=== PATIENT | female | born 1960 | race Caucasian/White ===

== ENCOUNTER 2019-12-31 13:26 | Inpatient (IN) | payer MEDICARE ==
[~2019-12-31] VITALS: Ht 165.1 cm; Wt 85.7 kg
[2019-12-31] MEDS ORDERED: LOTENSIN40 MG PO (13:49)
[2019-12-31] MEDS ORDERED: PROZAC20 MG PO (13:50)
[2019-12-31] MEDS ORDERED: CYCLOBENZAPRINE10 MG PO (13:51)
[2019-12-31 14:01] VITALS: BP 193/65; BMI 31.5
[2019-12-31 14:22] LABS: BASOPHILS 0.4 % (0-2); EOSINOPHILS 1.8 % (0-7); HEMATOCRIT 46.1 % (36.0-48.0); HEMOGLOBIN 14.9 g/dL (12-16); IMMATURE GRANULOCYTES 0.3 % (0-5); MCH 27.4 pg (26.0-34.0); MCHC 32.3 g/dL (31.0-37.0); MCV 84.9 fL (80.0-100.0); MONOCYTES 5.8 % (2-11); NEUTROPHILS 68.7 % (40-80); PLATELET COUNT 152 10x3/uL (130-400); RBC 5.43 10x6/uL (4.00-5.40); RDW 14.4 % (11.5-14.5)
[2019-12-31 14:30] LABS: APTT 36.8 SECONDS (22.8-39.4); INR 1.09 (0.85-1.17)
--- NOTE | 2019-12-31 14:36 | NUR ---
IV STARTED TO RIGHT FA WITH 20 GAUGE CATH X 1 STICK AND FLUSHED WITH NS. LINE IS PATENT.
[2019-12-31 15:08] LABS: ALBUMIN 3.5 g/dL (3.4-5.0); ALKALINE PHOSPHATASE 150 U/L (30-120); ALT (SGPT) 22 U/L (10-68); BILIRUBIN - TOTAL 0.41 mg/dL (0.2-1.3); CALC OSMOLALITY 276 mosm/kg (275-300); CARBON DIOXIDE 27.9 mmol/L (21.0-32.0); CHLORIDE - SERUM 102 mmol/L (98-107); CKMB 0.8 U/L (0.0-3.6); CREATINE KINASE 26 UL (21-215); GLUCOSE 151 mg/dL (74-106); POTASSIUM - SERUM 3.8 mmol/L (3.5-5.1); PROTEIN - SERUM 6.5 g/dL (6.4-8.2); SODIUM 139 mmol/L (136-145); UREA NITROGEN 1 mg/dL (7-18)
[2019-12-31 15:36] LABS: CREATININE - SERUM 0.6 mg/dL (0.6-1.3); MAGNESIUM - SERUM 1.8 mg/dL (1.8-2.4); eGFR NON AFRICAN AMERICAN > 90 mL/min (90-120)
[2019-12-31 16:21] LABS: CHOL - HDL RATIO 5.9 ratio (2.3-4.1); LDL-HDL RATIO 4.1 ratio (1.5-3.5); THYROID STIMULATING HORMONE 1.51 uIU/mL (0.36-3.74)
[2019-12-31 18:53] VITALS: BP 156/48
--- NOTE | 2019-12-31 19:37 | NUR ---
RECEIVED BEDSIDE RPEORT. PATIENT IS ALERT AND ORIENTED, RESTING COMFORTABLY IN BED. RESPIRATIONS ARE EVEN AND UNLABORED. NO S/S OF DISTRESS. NO C/O PAIN. CALL LIGHT WITHIN REACH. WILL CPOC.
[2019-12-31 20:00] VITALS: BP 139/82
[2019-12-31 20:29] LABS: CKMB 2.2 U/L (0.0-3.6); CREATINE KINASE 25 UL (21-215); TROPONIN-I < 0.017 ng/mL (0.000-0.060)
[2020-01-01] VITALS: BP 167/54; BP 189/76
[2020-01-01 02:50] LABS: CKMB 0.5 U/L (0.0-3.6); CREATINE KINASE 20 UL (21-215); TROPONIN-I < 0.017 ng/mL (0.000-0.060)
[2020-01-01 04:00] VITALS: BP 193/86
[2020-01-01 05:02] LABS: BASOPHILS 0.4 % (0-2); EOSINOPHILS 2.6 % (0-7); HEMATOCRIT 44.7 % (36.0-48.0); HEMOGLOBIN 14.4 g/dL (12-16); IMMATURE GRANULOCYTES 0.3 % (0-5); MCH 27.3 pg (26.0-34.0); MCHC 32.2 g/dL (31.0-37.0); MCV 84.8 fL (80.0-100.0); MEAN PLATELET VOLUME 11.6 fL (7.4-10.4); NEUTROPHILS 60.7 % (40-80); PLATELET COUNT 135 10x3/uL (130-400); RBC 5.27 10x6/uL (4.00-5.40); RDW 14.5 % (11.5-14.5); WBC 7.8 10x3/uL (4.8-10.8)
[2020-01-01 05:14] LABS: CALC OSMOLALITY 281 mosm/kg (275-300); CALCIUM 8.8 mg/dL (8.5-10.1); CHLORIDE - SERUM 104 mmol/L (98-107); CREATININE - SERUM 0.6 mg/dL (0.6-1.3); GLUCOSE 162 mg/dL (74-106); MAGNESIUM - SERUM 1.8 mg/dL (1.8-2.4); POTASSIUM - SERUM 3.4 mmol/L (3.5-5.1); SODIUM 140 mmol/L (136-145); eGFR NON AFRICAN AMERICAN > 90 mL/min (90-120)
[2020-01-01 05:19] LABS: UREA NITROGEN 10 mg/dL (7-18)
--- NOTE | 2020-01-01 07:36 | NUR ---
ASSESSMENT DONE. DENIES NEEDS
[2020-01-01 09:32] VITALS: BP 183/63
--- NOTE | 2020-01-01 10:04 | NUR ---
I have reviewed this patient and I concur with the Shift Assessment completed by the Licensed Practical Nurse today this shift.
[2020-01-01 12:59] VITALS: Ht 165.1 cm; Wt 85.7 kg
[2020-01-01 13:39] VITALS: BP 192/74
[2020-01-01 16:00] VITALS: BP 182/89
--- NOTE | 2020-01-01 16:45 | NUR ---
WITHOUT CHANGES OR DISTRESS NOTED AT THIS TIME. DENIES NEEDS
[2020-01-01 20:00] VITALS: BP 186/65
[2020-01-02 04:00] VITALS: BP 171/62
--- NOTE | 2020-01-02 04:36 | NUR ---
ADMINISTERED PRN APRESOLINE FOR BP 171/62
[2020-01-02 06:55] LABS: CALC OSMOLALITY 278 mosm/kg (275-300); CALCIUM 8.9 mg/dL (8.5-10.1); CARBON DIOXIDE 27.8 mmol/L (21.0-32.0); CHLORIDE - SERUM 103 mmol/L (98-107); CREATININE - SERUM 0.5 mg/dL (0.6-1.3); GLUCOSE 164 mg/dL (74-106); MAGNESIUM - SERUM 1.9 mg/dL (1.8-2.4); POTASSIUM - SERUM 3.6 mmol/L (3.5-5.1); SODIUM 138 mmol/L (136-145); UREA NITROGEN 11 mg/dL (7-18); eGFR NON AFRICAN AMERICAN > 90 mL/min (90-120)
[2020-01-02 07:19] LABS: BASOPHILS 0.5 % (0-2); EOSINOPHILS 2.5 % (0-7); HEMATOCRIT 46.8 % (36.0-48.0); HEMOGLOBIN 15.3 g/dL (12-16); IMMATURE GRANULOCYTES 0.4 % (0-5); LYMPHOCYTES 26.4 % (15-50); MCH 27.7 pg (26.0-34.0); MCHC 32.7 g/dL (31.0-37.0); MCV 84.8 fL (80.0-100.0); MEAN PLATELET VOLUME 11.3 fL (7.4-10.4); NEUTROPHILS 63.2 % (40-80); PLATELET COUNT 133 10x3/uL (130-400); RBC 5.52 10x6/uL (4.00-5.40); RDW 14.3 % (11.5-14.5); WBC 7.6 10x3/uL (4.8-10.8)
[2020-01-02 07:43] VITALS: BP 164/60
[2020-01-02] MEDS ORDERED: NORVASC10 MG PO (11:22)
[2020-01-02] MEDS ORDERED: HCTZ25 MG PO (11:23)
[2020-01-02 11:51] VITALS: BP 197/85
--- NOTE | 2020-01-02 12:05 | MORECARE ---
CASE MANAGEMENT DISCHARGE SUMMARY PATIENT: SHANI BOLTON UNIT: [id number] ADM DATE: 12/31/19 AGE: 59 : 58 SEX: F ROOM/BED: D.2121 AUTHOR: SIRI,DOC PHYSICIAN: REFERRING PHYSICIAN: ADOLFO NGUYEN MD DATE OF SERVICE: 01/02/20 Discharge Plan Patient Name: SHANI BOLTON Facility: [facility]:[place] : 1960 Planned Disposition: Home Anticipated Discharge Date: Discharge Date: Expected LOS: 0 Initial Reviewer: [email or web address] Initial Review Date: 12/31/2019 Generated: 01/02/20 1:04 pm DCPIA - Discharge Planning Initial Assessment Updated by [email or web address]: Shani Rojo on 01/02/20 12:02 pm * Is the patient Alert and Oriented? Yes * How many steps to enter\exit or inside your home? 5/0 * PCP sukumar * Pharmacy [facility] * Preadmission Environment Home Alone * ADLs Independent * Equipment Bedside Commode Cane Rolling Walker * Verbal permission to speak to the caregivers and representatives has been obtained from the patient. N/A * Community resources currently utilized None * Additional services required to return to the preadmission environment? Yes * Can the patient safely return to the preadmission environment? Yes * Has this patient been hospitalized within the prior 30 days at any hospital? No Coverage Notice Reviewer: [id number] Ayo Rojo Notice Issued Date-Time: 01/01/2020 11:38 Notice Type: IM Discharge Notice Notice Delivered To: Patient Relationship to Patient: Tape Maker Name: Delivery Method: HAND - Hand Delivered Sharron Days: Prior Verbal Notification: Recipient Understood Notice: Yes Recipient Signature: Yes Med Rec Note Co-signed by Attending: Coverage Notice Comment: DC IMM delivered, explained, signed by the patient, and placed in his chart. Signed form also left with patient. Reviewer: [email or web address] Ayo Rojo Notice Issued Date-Time: 01/01/2020 11:35 Notice Type: Patient Choice Letter Notice Delivered To: Patient Relationship to Patient: Tape Maker Name: Delivery Method: HAND - Hand Delivered Sharron Days: Prior Verbal Notification: Recipient Understood Notice: Yes Recipient Signature: Yes Med Rec Note Co-signed by Attending: Coverage Notice Comment: chad DECLENATION SIGNED FOR ANY HOME HEALTH SERVICES. PT DENIES NEEDS AT THIS TIME. Patient Name: SHANI BOLTON Page [phone] at 1205 All edits/amendments must be made on the electronic document DICTATION DATE: 01/02/20 120 OVERHEAD DISTRIBUTION ENGINEER: EDWIN 01/02/20 1204 RPT#: [id number] DC DATE: STATUS: ADM IN [facility] [address] [place] [address] END OF REPORT
--- NOTE | 2020-01-02 12:13 | MORECARE ---
CASE MANAGEMENT DISCHARGE SUMMARY PATIENT: SHANI BOLTON UNIT: [id number] ADM DATE: 12/31/19 AGE: 59 : 58 SEX: F ROOM/BED: D.6995 AUTHOR: NATALIYA HORNER PHYSICIAN: REFERRING PHYSICIAN: ADOLFO NGUYEN MD DATE OF SERVICE: 01/02/20 Discharge Plan Patient Name: SHANI BOLTON Facility: [facility]:[place] : 1960 Planned Disposition: Home Anticipated Discharge Date: Discharge Date: Expected LOS: 0 Initial Reviewer: [email or web address] Initial Review Date: 12/31/2019 Generated: 01/02/20 1:12 pm Comments DCP- Discharge Planning Updated by [email or web address]: Shani Rojo on 01/02/20 11:[address] Patient Name: SHANI BOLTON Admission Status: Elective Admission Date: 12-31-2019 : 1960 Admission Diagnosis: ESSENTIAL (PRIMARY) HYPERTENSION Attending: ADOLFO BARKER Current LOS: 2 Anticipated DC Date: Planned Disposition: Home Primary Insurance: [facility] [employer] Discharge Planning Comments: CM met with patient to complete initial dc planning assessment. CM educated patient on the CM role and verbal consent given by patient to complete assessment. CM verified patient's address, phone number, and emergency contact phone numbers. Patient lives at home with a roommate, and is independent. At discharge patient plans to return home and feels this is a safe discharge. CM discussed availability of home health, rehab services, and medical equipment. Patient has a shower chair, bed side commode, cane, and a rolling walker. States she is able to mow her property, and denies any difficulty with ADL's, Transportation provider at discharge will be herself. CM will continue to follow and will assist as needed with dc plans/needs. DC IMM delivered, explained, signed by the patient, and placed in his chart. Signed form also left with patient. Sew Out Operator: Shani Rojo DCPIA - Discharge Planning Initial Assessment Updated by [email or web address]: Shani Rojo on 01/02/20 12:02 pm * Is the patient Alert and Oriented? Yes * How many steps to enter\exit or inside your home? 5/0 * PCP sukumar * Pharmacy [facility] * Preadmission Environment Home Alone * ADLs Independent * Equipment Bedside Commode Cane Rolling Walker * Verbal permission to speak to the caregivers and representatives has been obtained from the patient. N/A * Community resources currently utilized None * Additional services required to return to the preadmission environment? Yes * Can the patient safely return to the preadmission environment? Yes * Has this patient been hospitalized within the prior 30 days at any hospital? No Coverage Notice Reviewer: [id number] Ayo Rojo Notice Issued Date-Time: 01/01/2020 11:38 Notice Type: IM Discharge Notice Notice Delivered To: Patient Relationship to Patient: Metal Bonding Crib Attendant Name: Delivery Method: HAND - Hand Delivered Sharron Days: Prior Verbal Notification: Recipient Understood Notice: Yes Recipient Signature: Yes Med Rec Note Co-signed by Attending: Coverage Notice Comment: DC IMM delivered, explained, signed by the patient, and placed in his chart. Signed form also left with patient. Reviewer: [id number] Ayo Rojo Notice Issued Date-Time: 01/01/2020 11:35 Notice Type: Patient Choice Letter Notice Delivered To: Patient Relationship to Patient: Metal Bonding Crib Attendant Name: Delivery Method: HAND - Hand Delivered Sharron Days: Prior Verbal Notification: Recipient Understood Notice: Yes Recipient Signature: Yes Med Rec Note Co-signed by Attending: Coverage Notice Comment: chad DECLENATION SIGNED FOR ANY HOME HEALTH SERVICES. PT DENIES NEEDS AT THIS TIME. Last DP export: 01/02/20 11:05 a Patient Name: SHANI BOLTON Page [phone] at 1213 All edits/amendments must be made on the electronic document DICTATION DATE: 01/02/20 1212 PROTOTYPE MACHINIST: EDWIN 01/02/20 1212 RPT#: [id number] DC DATE: STATUS: ADM IN [facility] [address] [place] [address] END OF REPORT
--- NOTE | 2020-01-02 13:17 | NUR ---
PT LEFT FOREARM IV DC'D AND DISCHARGE INSTRUCTIONS GIVEN. VITALS STABLE PT A/O. PT DISCHARGED TO PRIVATE VEHICLE.
== END 2020-01-02 13:55 | disposition home or self-care (01) | DRG 305 ==
LOC: D.M2 13:26
PROVIDERS: Family Medicine; ADMIT Family Medicine; ATTEND Family Medicine
DX: I16.9 Hypertensive crisis, unspecified (principal); E11.9 Type 2 diabetes mellitus without complications; M19.90 Unspecified osteoarthritis, unspecified site; Z86.73 Personal history of transient ischemic attack (TIA), and cerebral infarction without residual deficits

== ENCOUNTER → 2020-01-14 08:59 | Outpatient (CLI) | payer MEDICARE ==
[2020-01-01 12:59] VITALS: BMI 31.4
[~2020-01-14 08:59] MED LIST: CYCLOBENZAPRINE10 MG PO; HCTZ25 MG PO; LOTENSIN40 MG PO; NORVASC10 MG PO; PROZAC20 MG PO
== END | disposition home or self-care (01) ==
LOC: D.MRI 08:59
PROVIDERS: ATTEND Orthopaedic Surgery
DX: M54.16 Radiculopathy, lumbar region (principal)

== ENCOUNTER 2020-02-26 08:00 | Outpatient (CLI) | payer MEDICARE ==
[2020-01-01 12:59] VITALS: BMI 31.4
== END 2020-02-26 23:59 | disposition home or self-care (01) ==
LOC: D.MAMMO 08:00
PROVIDERS: ATTEND Nurse Practitioner Family
DX: Z12.31 Encounter for screening mammogram for malignant neoplasm of breast (principal)

== ENCOUNTER 2020-10-21 05:00 | Day surgery (SDC) | payer MEDICARE ==
[2020-10-18 13:12] LABS: BASOPHILS 0.6 % (0-2); EOSINOPHILS 3.3 % (0-7); HEMATOCRIT 44.9 % (36.0-48.0); HEMOGLOBIN 14.8 g/dL (12-16); IMMATURE GRANULOCYTES 0.2 % (0-5); LYMPHOCYTE ABS# 2.35 10x3/uL (1.18-3.74); LYMPHOCYTES 29.1 % (15-50); MCH 27.3 pg (26.0-34.0); MCV 82.8 fL (80.0-100.0); MEAN PLATELET VOLUME 11.3 fL (7.4-10.4); MONOCYTES 5.5 % (2-11); NEUTROPHIL ABS# 4.94 10x3/uL (1.56-6.13); NEUTROPHILS 61.3 % (40-80); PLATELET COUNT 146 10x3/uL (130-400); RBC 5.42 10x6/uL (4.00-5.40); RDW 14.1 % (11.5-14.5); WBC 8.1 10x3/uL (4.8-10.8)
[2020-10-18 13:36] LABS: CALC OSMOLALITY 278 mosm/kg (275-300); CALCIUM 9.7 mg/dL (8.5-10.1); CARBON DIOXIDE 31.2 mmol/L (21.0-32.0); CHLORIDE - SERUM 102 mmol/L (98-107); CREATININE - SERUM 0.7 mg/dL (0.6-1.3); GLUCOSE 134 mg/dL (74-106); POTASSIUM - SERUM 3.8 mmol/L (3.5-5.1); SODIUM 139 mmol/L (136-145); UREA NITROGEN 11 mg/dL (7-18); eGFR NON AFRICAN AMERICAN 90 mL/min (90-120)
[~2020-10-21] VITALS: Ht 165.1 cm; Wt 81.6 kg
[~2020-10-21 05:00] MED LIST changes: +HYDRALAZINE HCL10 MG PO; +LIPITOR10 MG PO; +NORVASC10 MG; +TOPROL XL25 MG PO; +[UNRECOGNIZED DRUG - OTHER]
[2020-10-21 05:51] VITALS: BP 141/66; Ht 165.1 cm; Wt 81.6 kg
[2020-10-21] MEDS ORDERED: HYDROCODON-ACE1 EA10 PO (08:46)
[2020-10-21] MEDS ORDERED: MEDROL DOSE PACK4 MG PO (08:46)
--- NOTE | 2020-10-21 10:13 | NUR ---
1000 O2 SAT 89% UPON ENTERING PT'S ROOM. REMINDED PT TO TAKE DEEP BREATHS AND COUGH. OXYGEN SAT CAME UP TO 95%. 1010 OXYGEN LEVEL 90-92% IV DC'D. CATHETER TIP INTACT. PRESSURE HELD UNTIL BLEEDING STOPPED. BANDAID APPLIED. DISCHARGE INSTRUCTIONS REVIEWED WITH PT WHO VOICES UNDERSTANDING OF THESE INSTRUCTIONS.
--- NOTE | 2020-10-27 13:05 | OP ---
PATIENT NAME: ALYSIA BOLTON MEDICAL RECORD: [id number] :58 LOCATION:D.OPS ADMISSION DATE: SURGEON: MARY SAPP MD DATE OF OPERATION: 10/21/2020 DATE OF SERVICE: 10/21/2020 PREOPERATIVE DIAGNOSES: Lumbar spinal stenosis and foraminal stenosis at L3-L4 and L4-L5, right. POSTOPERATIVE DIAGNOSES: Lumbar spinal stenosis and foraminal stenosis at L3-L4 and L4-L5, right. PROCEDURE: Lumbar laminectomy, medial facetectomy and foraminotomy at L3-L4 and L4-L5 on the right with METRx retractor. SURGEON: Mary Sapp MD DESCRIPTION OF PROCEDURE: After induction of general endotracheal anesthesia, the patient was rolled prone on the Vamshi frame. The lumbar spine was prepped and draped in usual sterile fashion. Fluoroscopic x-ray and spinal needle localized the L3-L4 interspace on the right side. After infiltration of 1:100,000 epinephrine with 1% lidocaine, a stab incision was created with a #11 blade. Series of dilators was used to advance a METRx retractor to the L3-L4 interspace on the right side. Level was confirmed with fluoroscopic x-ray. A microscope and Midas Van drill was used to perform a laminectomy, medial facetectomy, and foraminotomy at L3-L4 and L4-L5 on the right. Hypertrophied ligamentum flavum was removed with Cloward rongeurs. This relieved a nerve root compression at L3, L4 and L5 nerve roots. Meticulous hemostasis was maintained throughout the wound. The wound was irrigated with copious amounts of Ancef irrigant solution. The retractor was removed. The fascia was closed with 2-0 Vicryl suture. The subdermal layer was closed with 3-0 Vicryl suture. Skin was closed with melisa. A sterile dressing was applied to the wound. The patient was awakened in good condition and taken to recovery. All counts were reported as correct. Estimated blood loss was minimal. TRANSINT:[id number] Voice Confirmation ID: [id number] DOCUMENT ID: [id number] MARY SAPP MD at 1305 CC: [id number] DICTATION DATE: 10/26/20 1238 OFFICE CASHIER: 10/26/20 1323 [facility] 10/21/20 [facility] [address] [id number]
== END 2020-10-21 10:37 | disposition home or self-care (01) ==
LOC: D.OPS 05:00
PROVIDERS: Anesthesiology; ATTEND Neurological Surgery
DX: M48.061 Spinal stenosis, lumbar region without neurogenic claudication (principal); M54.16 Radiculopathy, lumbar region; M54.5 Low back pain; I10 Essential (primary) hypertension; E11.9 Type 2 diabetes mellitus without complications; E78.5 Hyperlipidemia, unspecified